=== PATIENT | male | born 1980 | race Caucasian/White ===

== ENCOUNTER 2017-02-17 11:14 | Emergency (ER) | payer OTHER ==
[~2017-02-17] VITALS: Ht 365.8 cm; Wt 104.3 kg
[~2017-02-17 11:14] MED LIST: AZITHROMYCIN250 MG PO; CRUTCH1 EACH MISC; GUAIATUSSIN AC118 ML PO; HYDROCHLOROTHIA25 MG PO; HYDROCODON-ACE1 EA10 PO; IBUPROFEN800 MG PO; LISINOPRIL-HCT1 EAC1 PO; METOPROLOL; METOPROLOL SUCC50 MG PO; PREDNISONE20 MG PO; PROMETHAZINE-COD5 ML PO; PROVENTIL HFA6.7 GM INH
[2017-02-17] MEDS ORDERED: TRAZODONE HCL50 MG NG (11:24)
== END 2017-02-17 11:28 | disposition home or self-care (01) ==
LOC: ED 11:14
DX: S51.012A Laceration without foreign body of left elbow, initial encounter (principal); Z00.8 Encounter for other general examination; X58.XXXA Exposure to other specified factors, initial encounter

== ENCOUNTER 2025-06-23 20:28 | Emergency (ER) | payer SELFPAY ==
[~2025-06-23] VITALS: Ht 365.8 cm; Wt 122.4 kg
[~2025-06-23 20:28] MED LIST changes: +TRAZODONE HCL50 MG NG
[2025-06-23] MEDS ORDERED: SERTRALINE HCL50 MG PO (20:40)
[2025-06-23] MEDS ORDERED: BUPROPION XL150 MG PO (20:40)
[2025-06-23 20:45] LABS: BASOPHILS 0.3 % (0.2-1.2); EOSINOPHILS 0.2 % (0.8-7.0); LYMPHOCYTES 11.9 % (21.8-53.1); MCH 30.0 PG (25.7-32.2); MCHC 35.2 g/dL (32.3-36.5); MCV 85.4 fL (79.0-92.2); MONOCYTES 5.0 % (5.3-12.2); NEUTROPHILS 82.2 % (34.0-67.9); RBC 5.13 M/uL (4.63-6.08)
[2025-06-23] MEDS ORDERED: SODIUM CHLORIDE 0.9% 1,000 ML IV ONE (20:45)
[2025-06-23] MEDS ORDERED: MORPHINE SULFATE 4 MG/ML VIAL IV ONE (20:45)
[2025-06-23 21:01] LABS: ALT (SGPT) 33.0 U/L (14-59); AST (SGOT) 14.0 U/L (15-37); GLOMERULAR FILTRATION RATE,EST 71.0 mL/min (>60); PROTEIN, TOTAL 7.8 g/dL (6.4-8.2); UREA NITROGEN 14.0 mg/dL (7-18)
[2025-06-23] MEDS ORDERED: DICYCLOMINE HCL 10 MG HOME.PACK PO ONE (22:15)
[2025-06-23] MEDS ORDERED: LEVSIN-SL0.125 MG SL (22:15)
[2025-06-23] MEDS ORDERED: ONDANSETRON ODT8 MG PO (22:15)
[2025-06-23] MEDS ORDERED: COLACE100 MG PO (22:22)
[2025-06-23] MEDS ORDERED: ONDANSETRON 4 MG HOME.PACK SL ONE (22:30)
[2025-06-23] MEDS ORDERED: HYDROCODONE BIT/ACETAMINOPHEN 5/325 MG 1 TAB HOME.PACK PO ONE (22:30)
[2025-06-23 22:42] VITALS: BP 145/100
== END 2025-06-23 22:46 | disposition home or self-care (01) ==
LOC: ED 20:28
PROVIDERS: Family Medicine
DX: K52.9 Noninfective gastroenteritis and colitis, unspecified (principal); K56.7 Ileus, unspecified; I10 Essential (primary) hypertension; Z79.899 Other long term (current) drug therapy
CPT/HCPCS: 36415; 74177; 80053; 83690; 85025; 96361; 96374; 96375; 99284-25; A9270; J1790; J2270; J2405; J7030; Q9967